=== PATIENT | female | born 1995 | race Caucasian/White ===

== ENCOUNTER 2019-04-03 19:57 | Emergency (ER) | payer BC ==
[2019-04-03] MEDS ORDERED: ONDANSETRON HCL INJ/PF 4 MG/2 ML SDV IV ONE (20:51)
[2019-04-03] MEDS ORDERED: NORMAL SALINE 1000 ML 1,000 ML IV ONE ×2 (20:51→20:54)
--- NOTE | 2019-04-03 20:55 | ER Document Report ---
ED Medical Screen (RME) - General Chief Complaint: Nausea/Vomiting Stated Complaint: VOMITING Time Seen by Provider: 04/03/19 20:53 Primary Care Provider: JOE BECERRA FNP-C [Primary Care Provider] - Follow up as needed Mode of Arrival: Ambulatory Information source: Patient Notes: Patient is an otherwise healthy 23-year-old female presents the emergency department chief complaint of nausea, vomiting and diarrhea over the last 3 days. Patient denies any fevers or urinary complaints. Patient denies any chronic medical conditions. Exam: Patient actively vomiting in triage. I have greeted and performed a rapid initial assessment of this patient. A comprehensive ED assessment and evaluation of the patient, analysis of test results and completion of the medical decision making process will be conducted by additional ED providers. I have specifically instructed the patient or family members with the patient to immediately return to any nursing staff should anything change in the patient's condition or with their chief complaint. This medical record was dictated with voice recognizing software. There may be grammatical, syntax errors that are unintended. TRAVEL OUTSIDE OF THE [place] IN LAST 30 DAYS: No Past Medical History - Social History Chew tobacco use (# tins/day): No Frequency of alcohol use: None Drug Abuse: None Renal/ Medical History: Denies: Hx Peritoneal Dialysis Physical Exam - Vital signs Vitals: Temp Pulse Resp BP Pulse Ox 98.1 F 115 H 20 124/72 100 04/03/19 20:15 04/03/19 20:15 04/03/19 20:15 04/03/19 20:15 04/03/19 20:15 Course - Vital Signs Vital signs: Temp Pulse Resp BP Pulse Ox 98.1 F 115 H 20 124/72 100 04/03/19 20:15 04/03/19 20:15 04/03/19 20:15 04/03/19 20:15 04/03/19 20:15 Doctor's Discharge - Discharge Referrals: JOE BECERRA FNP-C [Primary Care Provider] - Follow up as needed
[2019-04-03 21:35] LABS: ABSOLUTE LYMPHOCYTES (AUTO) 0.7 10^3/uL (0.5-4.7); ABSOLUTE MONOCYTES (AUTO) 0.7 10^3/uL (0.1-1.4); ABSOLUTE NEUT (AUTO) 10.4 10^3/uL (1.7-8.2); BASOPHILS % (AUTO) 0.1 % (0-2); HEMATOCRIT 43.8 % (36.0-47.0); HEMOGLOBIN 14.9 g/dL (12.0-15.5); LYMPHOCYTES % (AUTO) 6.1 % (13-45); MEAN CORPUSCULAR HGB CONC 33.9 g/dL (32.0-36.0); MEAN CORPUSCULAR VOLUME 85 fl (80-97); MONOCYTES % (AUTO) 5.6 % (3-13); PLATELET COUNT 348 10^3/uL (150-450); RED BLOOD COUNT 5.13 10^6/uL (3.72-5.28); RED CELL DISTRIBUTION WIDTH 14.8 % (11.5-14.0); SEGMENTED NEUTROPHILS % (AUTO) 88.2 % (42-78); TOTAL CELLS COUNTED % (AUTO) 100 %; WHITE BLOOD COUNT 11.8 10^3/uL (4.0-10.5)
[2019-04-03 21:52] LABS: ALANINE AMINOTRANSFERASE 29 U/L (9-52); ALBUMIN 5.4 g/dL (3.5-5.0); ALKALINE PHOSPHATASE 80 U/L (38-126); ASPARTATE AMINO TRANSFERASE 35 U/L (14-36); BILIRUBIN,DIRECT 0.3 mg/dL (0.0-0.4); BILIRUBIN,TOTAL 1.3 mg/dL (0.2-1.3); BLOOD UREA NITROGEN 16 mg/dL (7-20); CALCIUM 10.5 mg/dL (8.4-10.2); CARBON DIOXIDE 19 mmol/L (22-30); GLUCOSE 130 mg/dL (75-110); POTASSIUM 4.5 mmol/L (3.6-5.0); SODIUM 139.6 mmol/L (137-145); TOTAL PROTEIN 9.3 g/dL (6.3-8.2)
[2019-04-03 21:58] LABS: CHLORIDE 99 mmol/L (98-107)
[2019-04-03 21:59] LABS: ANION GAP 22 (5-19)
[2019-04-03] MEDS ORDERED: METOCLOPRAMIDE HCL ORAL SOLN 10 MG/10 ML UDCUP PO ONE (23:01)
[2019-04-03] MEDS ORDERED: MAG HYDROX/AL HYDROX/SIMETH SUSP 30 ML UDCUP PO ONE (23:01)
[2019-04-03] MEDS ORDERED: LIDOCAINE 2% VISCOUS SOLN 20 ML UDCUP PO ONE (23:01)
--- NOTE | 2019-04-03 23:03 | ER Document Report ---
ED GI/ - General Chief Complaint: Nausea/Vomiting Stated Complaint: VOMITING Time Seen by Provider: 04/03/19 20:53 Primary Care Provider: JOE BECERRA FNP-C [Primary Care Provider] - Follow up as needed Mode of Arrival: Ambulatory Notes: Patient is a 23-year-old female that comes to the emergency department for chief complaint of vomiting and dehydration. She states she started vomiting Saturday night, then for the past couple of days she has had frequent episodes of vomiting. She states she started feeling a lot worse today and could not keep down water. Seen by urgent care, states she was supposed to get a prescription for Zofran called in but this did not happen. She denies fever/chills. She had a loose bowel movement this morning but denies regular diarrhea episodes. She reports mild generalized upper abdominal tenderness intermittently but denies any current pain in the abdomen. She denies lower abdominal pain, vaginal bleeding or discharge, dysuria, flank pain. She denies any daily medications, surgeries, or any diagnosed medical problems. She denies any recent travel, antibiotics, or suspicious foods. TRAVEL OUTSIDE OF THE [place] IN LAST 30 DAYS: No Past Medical History - General Information source: Patient - Social History Smoking Status: Never Smoker Chew tobacco use (# tins/day): No Frequency of alcohol use: None Drug Abuse: None Lives with: Family Family History: Reviewed & Not Pertinent Patient has suicidal ideation: No Patient has homicidal ideation: No - Medical History Medical History: Negative Renal/ Medical History: Denies: Hx Peritoneal Dialysis Surgical Hx: Negative - Immunizations Immunizations up to date: Yes Hx Diphtheria, Pertussis, Tetanus Vaccination: Yes Review of Systems - Review of Systems Constitutional: No symptoms reported EENT: No symptoms reported Cardiovascular: No symptoms reported Respiratory: No symptoms reported Gastrointestinal: See HPI Genitourinary: No symptoms reported Female Genitourinary: No symptoms reported Musculoskeletal: No symptoms reported Skin: No symptoms reported Hematologic/Lymphatic: No symptoms reported Neurological/Psychological: No symptoms reported Physical Exam - Vital signs Vitals: Temp Pulse Resp BP Pulse Ox 98.1 F 115 H 20 124/72 100 04/03/19 20:15 04/03/19 20:15 04/03/19 20:15 04/03/19 20:15 04/03/19 20:15 - Notes Notes: GENERAL: Alert, interacts well. No acute distress. HEAD: Normocephalic, atraumatic. EYES: Pupils equal, round, and reactive to light. Extraocular movements intact. ENT: Oral mucosa dry, tongue midline. Oropharynx unremarkable. Airway patent. NECK: Full range of motion. Supple. Trachea midline. LUNGS: Clear to auscultation bilaterally, no wheezes, rales, or rhonchi. No respiratory distress. HEART: Borderline tachycardia. Normal rhythm. No murmur ABDOMEN: Soft, non-tender. Non-distended. Bowel sounds present in all 4 quadrants. GENITOURINARY: Deferred EXTREMITIES: Moves all 4 extremities spontaneously. No edema, normal radial and dorsalis pedis pulses bilaterally. No cyanosis. BACK: no cervical, thoracic, lumbar midline tenderness. Moves all extremities in full range of motion. Normal distal neurovascular exam. NEUROLOGICAL: Alert and oriented x3. Normal speech. Cranial nerves II through XII grossly intact. PSYCH: Normal affect, normal mood. SKIN: Warm, dry, normal turgor. No rashes or lesions noted. Course - Re-evaluation Re-evalutation: Patient has dry mucous membranes, is mildly tachycardic, however she is quite well-appearing and alert. She is conversational. Soft benign abdomen without any noted tenderness. CBC shows mild leukocytosis, chemistry shows low bicarbonate, urinalysis shows 300 ketones and elevated specific gravity. Patient given 2 L of normal saline IV fluid bolus. She was also given Zofran initially. I reevaluated her, she states she feels much better, she is requesting to try p.o. She was given GI cocktail, then she tolerated fluids. On reevaluation again she states she feels great and is ready to leave. She still has mild tachycardia, I did discuss additional fluids, however this was not performed because patient has no current symptoms and is requesting to leave. I have very low suspicion of acute abdomen or concerning infection based on her benign abdominal exam and lack of symptoms. Discussed treatment at home, follow-up, return precautions. She states understanding and agreement. - Vital Signs Vital signs: Temp Pulse Resp BP Pulse Ox 98.4 F 113 H 20 121/62 96 04/04/19 01:30 04/04/19 01:30 04/04/19 01:30 04/04/19 01:30 04/04/19 01:30 - Laboratory Result Diagrams: 04/03/19 21:20 04/03/19 21:20 Laboratory results interpreted by me: 04/03/19 04/03/19 04/03/19 21:20 21:20 23:55 WBC 11.8 H RDW 14.8 H Seg Neutrophils % 88.2 H Lymphocytes % 6.1 L Absolute Neutrophils 10.4 H Carbon Dioxide 19 L Anion Gap 22 H Glucose 130 H Calcium 10.5 H Total Protein 9.3 H Albumin 5.4 H Urine Protein 30 H Urine Ketones 300 H Discharge - Discharge Clinical Impression: Dehydration Nausea & vomiting Qualifiers: Vomiting type: unspecified Vomiting Intractability: non-intractable Qualified Code(s): R11.2 - Nausea with vomiting, unspecified Disposition: HOME, SELF-CARE Additional Instructions: You have been treated for dehydration and acidosis. You likely have gastritis after your vomiting and dehydration. I recommend the famotidine along with the Zofran, start with liquids, progress to bland foods, slowly progress to normal diet. Symptoms should resolve with time. Follow-up with primary care. Return if you worsen including returned vomiting, developing abdominal pain, fever/chills, or any other concerning or worsening symptoms. Prescriptions: Famotidine [Pepcid 20 mg Tablet] 20 mg PO BID #12 tablet Ondansetron [Zofran Odt 4 mg Tablet] 1 - 2 tab PO Q4H PRN #15 tab.rapdis PRN Reason: For Nausea/Vomiting Referrals: JOE BECERRA FNP-C [Primary Care Provider] - Follow up as needed
[2019-04-04 00:10] LABS: APPEARANCE,URINE CLEAR; BILIRUBIN,URINE NEGATIVE (NEGATIVE); COLOR,URINE YELLOW; GLUCOSE, URINE NEGATIVE (NEGATIVE); KETONES,URINE 300 mg/dL (NEGATIVE); LEUKOCYTE ESTERASE,URINE NEGATIVE (NEGATIVE); NITRITE,URINE NEGATIVE (NEGATIVE); PROTEIN,URINE 30 mg/dL (NEGATIVE); URINE SPECIFIC GRAVITY 1.025; UROBILINOGEN,URINE NEGATIVE mg/dL (<2.0)
[2019-04-04] MEDS ORDERED: ONDANSETRON ODT 4 MG TAB (6 TAB/ER DISP) PO PRN (00:50)
[2019-04-04 01:53] VITALS: BP 121/62
== END 2019-04-04 01:52 | disposition home or self-care (01) ==
LOC: ER 19:57
DX: R11.2 Nausea with vomiting, unspecified (principal); E86.0 Dehydration; R19.4 Change in bowel habit; R00.0 Tachycardia, unspecified
CPT/HCPCS: 99284; 96361; 96374; 36415; 84703; 85025; 80053; 81001; J3490; J2405; J7030

== ENCOUNTER → 2019-04-03 | Outpatient (CLI) | payer BC | LOC: OD 16:09 | PROVIDERS: ATTEND Nurse Practitioner Family | DX: R11.10 Vomiting, unspecified (principal) | CPT/HCPCS: 36415; 84703 ==